=== PATIENT | male | born 1970 | race Caucasian/White ===

== ENCOUNTER → 2018-11-28 | Outpatient (CLI) | payer OTHER ==
[2018-11-28 16:06] LABS: Blood Urea Nitrogen 17 mg/dL (9-20)
--- NOTE | 2018-11-28 17:19 | CT ---
EXAMINATION TYPE: CT angio chest DATE OF EXAM: 11/28/2018 4:55 PM COMPARISON: None HISTORY: SOB, hx of bronchitis, pneumonia CT DLP: 1315 mGycm Automated exposure control for dose reduction was used. CONTRAST: CTA scan of the thorax is performed with IV Contrast, patient injected with 150cc mL of Isovue 370, p ulmonary embolism protocol. There are 3-D post processed images.. FINDINGS: The lungs are clear of consolidation. There is no pleural effusion. There is no mediastinal adenopath y. There are paratracheal lymph nodes that measure up to 1.4 cm. There are no hilar masses. Thoracic aorta shows no aneurysm or dissection. There is normal contrast opacification of the pulmonary arteri es. There are no filling defects. There is degenerative mild spurring in the thoracic spine. I see no bony destructive process. There is fatty infiltration of the liver. IMPRESSION: NO EVIDENCE OF PULMONARY EMBOLISM. FATTY INFILTRATION THE LIVER. NONSPECIFIC SMALL MEDIASTINAL LYMPH NODES.
== END | disposition home or self-care (01) ==
LOC: RADCTMAIN 15:31
PROVIDERS: ATTEND Internal Medicine Critical Care Medicine
DX: R06.02 Shortness of breath (principal)
CPT/HCPCS: 82565; 84520; 71275; 36415; Q9967